=== PATIENT | male | born 1960 | race Caucasian/White ===

== ENCOUNTER 2018-03-25 14:02 | Outpatient (CLI) | payer OTHER ==
--- NOTE | 2018-03-25 15:58 | MRI ---
MRI BRAIN WITH AND WITHOUT CONTRAST: 03/25/18 HISTORY: 57-year-old male with R53.1, weakness. TECHNIQUE: Multiple sequences obtained in axial, sagittal, and coronal planes; pre and post IV injection of gado linium-based contrast agent: 20 mL of Multihance. FINDINGS: The ventricles are normal in size and configuration. There is no restricted diffusion, abnormal intr aaxial enhancement, mass, midline shift or any other mass effect, recent intraaxial hemorrhage, or ex traaxial fluid collection. There are numerous very small focal T2-hyperintensities in the cerebral wh ite matter consistent with chronic ischemic white matter changes due to microvascular atherosclerosis . There are diffuse mild brain parenchymal volume loss. IMPRESSION: 1. Mild-moderate chronic ischemic white matter changes. 2. Otherwise negative. jnr POS: CET
== END 2018-03-25 14:03 | disposition home or self-care (01) ==
LOC: TBSIIMAG 14:02
PROVIDERS: ATTEND Psychiatry & Neurology Neurology
DX: R53.1 Weakness (principal)
CPT/HCPCS: 70553

== ENCOUNTER 2018-07-22 07:32 | Outpatient (CLI) | payer BC, OTHER ==
--- NOTE | 2018-07-22 09:50 | RAD ---
CERVICAL SPINE 7 VIEWS INCLUDING RIGHT AND LEFT OBLIQUE VIEWS AND FLEXION AND EXTENSION LATERAL VIEWS : History: 57-year-old male with history of cervical radiculopathy. FINDINGS: Generalized disc osteophytosis with bridging anterior osteophyte at C5-6. No prevertebral soft tissue swelling. No evidence for anterior or retrolisthesis or abnormal translation between flexion and ext ension. IMPRESSION: Generalized cervical spondylosis with bridging osteophytosis anteriorly at C5-6. No abnormal translat ion between flexion and extension. POS: BRETT
--- NOTE | 2018-07-22 10:21 | MRI ---
CERVICAL SPINE MRI NONCONTRAST: INDICATION: Cervical radiculopathy, pain. FINDINGS: Motion artifact distorts anatomy and limits the evaluation. There is no evidence of acute compressio n fracture, or significant subluxation. Craniocervical junction is intact. The imaged posterior fos sa contents reveal no acute abnormality. No significant central canal stenosis of C1-2. C2-3: There is a right asymmetric mild disk-osteophyte with mild effacement of the ventral thecal sa c without high-grade central canal or foraminal stenosis. C3-4: There is an asymmetric to the disk-osteophyte with mild effacement of the ventral thecal sac a nd slight ventral cord flattening. Mild right and minimal left neural foraminal narrowing present. There is mild degenerative facet hypertrophy bilaterally. C4-5: There is a mild disk-osteophyte with mild effacement of the ventral thecal sac, although no co rd deformity. Mild right and minimal left neural foraminal narrowing present. C5-6: There is a broad-based disk-osteophyte with slight effacement of the ventral thecal sac. Ther e is moderate right and minimal left neural foraminal narrowing. C6-7: A broad-based disk-osteophyte is present. No high-grade central canal stenosis is seen. Ther e is mild to moderate bilateral neural foraminal stenosis. C7-T1: No high-grade central canal stenosis. There is bilateral degenerative facet hypertrophy more notable on the left. Mild left and minimal right neural foraminal narrowing present. No intrinsic cord signal abnormality is evident, although evaluation is limited as motion artifact do es distort the signal intensity of the cervical spinal cord. IMPRESSION: Multilevel cervical spine degenerative change, as outlined above. POS: BRETT
== END 2018-07-22 07:33 | disposition home or self-care (01) ==
LOC: TBSIIMAG 07:32
PROVIDERS: ATTEND Anesthesiology Pain Medicine
DX: M47.22 Other spondylosis with radiculopathy, cervical region (principal); M25.78 Osteophyte, vertebrae
CPT/HCPCS: 72052; 72141

== ENCOUNTER 2018-11-20 12:24 | Outpatient (CLI) | payer BC ==
--- NOTE | 2018-11-20 14:20 | MRI ---
FMR angiogram head noncontrast: 11/20/2018 HISTORY: 58-year-old male status post stroke. Left upper extremity and left lower extremity weakness. TECHNIQUE: 3-D [id number] MRA of head in multiple axial slabs from C1 to level to lower centrum semiovale. Source images and 3-D MIP reconstructions. FINDINGS: No significant stenosis of the intracranial vertebral arteries, basilar artery, posterior cerebral ar teries, carotid siphons, M1 segments of the middle cerebral arteries, or A1 segments of the anterior cerebral arteries. There may be atherosclerotic mild irregularity of the branches of the bilateral mi ddle cerebral arteries and questionably involving the A2 segments of the anterior cerebral arteries. No aneurysm greater than 3 mm identified. IMPRESSION: No occlusion of M1 segment of middle cerebral arteries or other proximal [place] of [place]vin vessels.
--- NOTE | 2018-11-20 14:56 | MRI ---
FMR angiogram neck with and without contrast: 11/20/2018 HISTORY: 58-year-old male status post stroke. Left upper extremity and left lower extremity weakness. TECHNIQUE: 3-D [id number] MRA acquired in multiple axial slabs. Following IV injection of MultiHance gadolinium-based contrast agent, coronal acquisition obtained fr om aortic arch to skull base. Source images and 3-D MIP reconstructions evaluated. FINDINGS: The proximal 4 to 5 cm of the left common carotid artery is very poorly visualized due to signal drop out. However, there is good visualization of the left subclavian artery and brachiocephalic artery. N o significant atherosclerotic irregularity or significant stenosis, of the bilateral vertebral, bilat eral subclavian, brachiocephalic, bilateral common carotid, cervical internal carotid, or external ca rotid, arteries. IMPRESSION: 1. Poor visualization of proximal left common carotid artery. 2. Otherwise negative.
[2018-11-20] MEDS ORDERED: Gadobenate Dimeglumine 529 MG/1 ML (20ML VIAL) ONE (15:35)
--- NOTE | 2018-11-20 16:33 | MRI ---
FExam: Brain MRI with and without contrast HISTORY: Left arm and leg weakness. Rule out for stroke. Comparison 03/25/2018 FINDINGS: No hemorrhage on the axial gradient echo sequence No parenchymal mass, mass effect or midline shift. Brain volume, age-appropriate Cortical garcia-white matter differentiation is preserved Ventricles and sulci are patent and symmetric Minimal T2 and FLAIR white matter hyperintensities due to chronic small vessel ischemic change Central arterial flow is maintained. Absent restricted diffusion. Adequate aeration of the sinuses and mastoid air cells Calvarium has a normal T1 marrow signal intensity. Midline brain parenchymal structures are unremarkable No pathologic enhancement. IMPRESSION: 1. Absent restricted diffusion. No acute infarct. 2. No pathologic enhancement of the brain parenchyma.
== END 2018-11-20 12:25 | disposition home or self-care (01) ==
LOC: BICMRI 12:24
PROVIDERS: ATTEND Neurological Surgery
DX: I63.9 Cerebral infarction, unspecified (principal); M54.16 Radiculopathy, lumbar region; R53.1 Weakness
CPT/HCPCS: 70544; 70549; 70553; 82565; A9577

== ENCOUNTER 2019-01-14 09:24 | Outpatient (CLI) | payer BC ==
--- NOTE | 2019-01-14 10:30 | CT ---
EXAM: Abdomen and pelvic CT scan with contrast: HISTORY: Abnormal weight loss COMPARISON: None FINDINGS: The visualized lung bases are clear. Liver: Unremarkable. Gallbladder:Unremarkable. Pancreas:Unremarkable Spleen:Unremarkable. Adrenal glands:Unremarkable. Kidneys:No renal calculus or acute obstruction.No solid or cystic mass. No evidence for bowel obstruction. No CT evidence for acute appendicitis. The urinary bladder is unremarkable. Evidence for right-sided hydrocele. No abscess, adenopathy, or abnormal fluid collection within the abdomen or pelvis. IMPRESSION: No significant acute process in the abdomen or pelvis. Lumbar spine degenerative disc changes.
== END 2019-01-14 09:25 | disposition home or self-care (01) ==
LOC: BICCT 09:24
PROVIDERS: ATTEND Family Medicine
DX: R63.4 Abnormal weight loss (principal); R10.9 Unspecified abdominal pain; M51.36 Other intervertebral disc degeneration, lumbar region
CPT/HCPCS: 74177